=== PATIENT | female | born 1970 | race Caucasian/White ===

== ENCOUNTER → 2017-04-27 | Outpatient (CLI) | payer BC, OTHER ==
[~2017-04-27] MED LIST: ACE3 PO; IBU800 PO
--- NOTE | 2017-05-02 14:06 | RADIOLOGY IMAGING REPORT ---
FACILITY: [facility] [place] PATIENT NAME: TRACI VALERO : [id number] MR: [id number] V: [id number] EXAM DATE: [id number] ORDERING PHYSICIAN: JAMES LOVETT TECHNOLOGIST: Stefania Skinner PROCEDURE:BILATERAL CC & MLO 3D TOMOGRAPHIC IMAGES WERE OBTAINED. CAD WAS USED. BILATERAL MLO NIPPLE IN PROFILE VIEWS WERE ALSO OBTAINED. COMPARISON:None. BREAST DENSITY: Extremely dense INDICATIONS:SCREENING FINDINGS: There are stable nodular asymmetries in both breasts. There is no dominant mass or suspicious calcifications. Numerous benign & loosely grouped calcifications are noted in both breasts. DIAGNOSTIC CATEGORY 2--BENIGN FINDING. RECOMMENDATIONS: ROUTINE MAMMOGRAM AND CLINICAL EVALUATION IN 1 YR. IMPRESSION: BIRADS 2: Benign finding. Dictated by: Kevin Carolina M.D. on 05/02/2017 at 8:42 Transcribed by: LINETTE on 05/02/2017 at 13:20 Approved by: Kevin Carolina M.D. on 05/02/2017 at 14:05 [facility]
== END ==
LOC: MAMO 00:36
PROVIDERS: ATTEND Obstetrics & Gynecology
DX: Z12.31 Encounter for screening mammogram for malignant neoplasm of breast (principal); R92.1 Mammographic calcification found on diagnostic imaging of breast
CPT/HCPCS: 77063; 77067

== ENCOUNTER → 2018-05-17 | Outpatient (CLI) | payer SELFPAY ==
--- NOTE | 2018-05-18 09:11 | RADIOLOGY IMAGING REPORT ---
FACILITY: [facility] - [place] PATIENT NAME: TRACI VALERO : [id number] MR: [id number] V: [id number] EXAM DATE: ORDERING PHYSICIAN: JAMES SIDDIQUI TECHNOLOGIST: Anneliese Haque PROCEDURE:BILATERAL DIGITAL SCREENING MAMMOGRAM WITH CAD ASSISTED INTERPRETATION & 3D TOMOSYNTHESIS COMPARISON:None. INDICATIONS:screening FINDINGS: The breasts are extremely dense which lowers the sensivity of mammography. There are nodular asymmetries in both breasts that appear relatively stable when allowing for slight difference in mammographic technique and patient positioning. There are scattered round calcifications also noted throughout both breasts. DIAGNOSTIC CATEGORY 2--BENIGN FINDING. RECOMMENDATIONS: ROUTINE MAMMOGRAM AND CLINICAL EVALUATION. IMPRESSION: BIRADS 2: Benign finding. No significant abnormality is seen. Dictated by: Amanda Christy M.D. on 05/17/2018 at 10:49 Transcribed by: LINETTE on 05/17/2018 at 10:57 Approved by: Amanda Christy M.D. on 05/18/2018 at 9:10 [facility]
== END ==
LOC: MAMO 00:27
PROVIDERS: ATTEND Obstetrics & Gynecology
DX: Z12.31 Encounter for screening mammogram for malignant neoplasm of breast (principal)
CPT/HCPCS: 77063; 77067